=== PATIENT | female | born 1990 | race Caucasian/White ===

== ENCOUNTER 2020-10-24 19:10 | Emergency (ER) | payer OTHER ==
[~2020-10-24] VITALS: Ht 160 cm; Wt 106.6 kg
[2020-10-24 19:20] VITALS: BP 154/99
--- NOTE | 2020-10-24 19:49 | NUR ---
Patient/Caregiver given discharge instructions and they have confirmed that they understand the instructions. Patient ambulatory with steady gait.
== END 2020-10-24 19:50 | disposition home or self-care (01) ==
LOC: ED 19:35
DX: K01.1 Impacted teeth (principal); H92.02 Otalgia, left ear; F17.200 Nicotine dependence, unspecified, uncomplicated
CPT/HCPCS: 99283